=== PATIENT | female | born 1990 | race Caucasian/White ===

== ENCOUNTER 2016-11-03 15:51 | Emergency (ER) | payer MEDICAID ==
[2016-11-03 16:21] VITALS: BP 113/76
--- NOTE | 2016-11-03 16:41 | ED Physician Chart ---
Chief Complaint/HPI - Patient Information Date Seen:: 11/03/16 Time Seen:: 16:22 Chief Complaint:: back pain History of Present Illness:: here for back pain. has hx of back pain. hasnt taken norco in a few days. says she takes norco 10s. pt says last rx was from her pmd (later admits it was from a ED Dr) on Oct 17... she becomes forgetfull/vague about how she has gotten prior narcotic rx's no dysuria. no incontinence or loss bowel/bladder ctrl. no leg weakness/numbness. no abd pain. no fever. her usual back pain has now returned since not on norco x 3 days. says she had a appt w Dr Hernandez today but he couldnt see her due to emergency. says she's changing drs recently. Dr Guido was giving her rx's before. Allergies:: Allergies Allergy/AdvReac Type Severity Reaction Status Date / Time No Known Allergies Allergy Verified 11/03/16 16:17 Vitals:: Vital Signs - 8 hr 11/03/16 16:21 BP 113/76 Historian:: Patient Review of Systems - Review of Systems General/Constitutional: No fever, No chills, No weight loss, No weakness, No diaphoresis, No edema, No loss of appetite Skin: No skin lesions, No rash, No bruising Head: No headache, No light-headedness Eyes: No loss of vision, No pain, No diplopia ENT: No earache, No nasal drainage, No sore throat, No tinnitus Neck: No neck pain, No swelling, No thyromegaly, No stiffness, No mass noted Cardio Vascular: No chest pain, No palpitations, No PND, No orthopnea, No edema Pulmonary: No SOB, No cough, No sputum, No wheezing GI: No nausea, No vomiting, No diarrhea, No pain, No melena, No hematochezia, No constipation, No hematemesis G/U: No dysuria, No frequency, No hematuria Musculoskeletal: No bone or joint pain, Back pain, No muscle pain Endocrine: No polyuria, No polydipsia Psychiatric: No prior psych history, No depression, No anxiety, No suicidal ideation Hematopoietic: No bruising, No lymphadenopathy Allergic/Immuno: No urticaria, No angioedema Neurological: No syncope, No focal symptoms, No weakness, No paresthesia, No headache, No seizure, No dizziness, No confusion, No vertigo Past Medical History - Past Medical History Past Medical History: Other (chronic back pain) Social History: Non Smoker, No Alcohol Medication: Reviewed Physical Exam - Physical Examination General/Constitutional: Awake, Well-developed, well-nourished, Alert, No distress, GCS 15, Non-toxic appearing, Ambulatory Other Gen/Cons comments:: obese female who appears easily mobile and in nad. wn/wh. no aaa on abd exam. nt abd. back tndr at l5/s1 region. no cva tndrness. ok rom. strength/sensation ok b legs. 2+ pulses b legs. Head: Atraumatic Eyes: Lids, conjuctiva normal, PERRL, EOMI Skin: Nl inspection, No rash, No skin lesions, No ecchymosis, Well hydrated, No lymphadenopathy ENMT: External ears, nose nl, Nasal exam nl, Lips, teeth, gums nl Neck: Nontender, Full ROM w/o pain, No JVD, No nuchal rigidity, No bruit, No mass, No stridor Respiratory: Nl effort/Exclusion, Clear to Auscultation, No Wheeze/Rhonchi/Rales Cardio Vascular: RRR, No murmur, gallop, rubs, NL S1 S2 GI: No tenderness/rebounding/guarding, No organomegaly, No hernia, Normal BS's, Nondistended, No mass/bruits, No McBurney tenderness : No CVA tenderness Extremities: No tenderness or effusion, Full ROM, normal strength in all extremities, No edema, Normal digits & nails Neuro/Psych: Alert/oriented, DTR's symmetric, Normal sensory exam, Normal motor strength, Judgement/insight normal, Mood normal, Normal gait, No focal deficits Misc: normal gait, Normal back, No paraspinal tenderness ED Septic Shock - . Is Septic Shock (SBP<90, OR Lactate>4 mmol\L) present?: No - <6hrs of presentation: Vital Signs: Vital Signs - 8 hr 11/03/16 16:21 BP 113/76 Reassessment (Disposition) - Reassessment Reassessment:: pdmp data is large and concerneing but recent data does corroborate some of her story. there are more prescribers and more types of rx's than would prefer to see...however will give pt the benefit of the doubt.. rx norco 10s no 14 Reassessment Condition:: Unchanged - Diagnosis Diagnosis:: 1 chronic back pain 2 ran out of norco - wants med refill - Aftercare/Follow up Instructions Aftercare/Follow-Up Instructions:: Counseled pt regarding lab results/diagnosis & need follow up - Patient Disposition Discharge/Transfer:: Home Condition at Disposition:: Unchanged
== END 2016-11-03 16:56 | disposition home or self-care (01) ==
LOC: ER 15:51
DX: G89.29 Other chronic pain (principal); M54.9 Dorsalgia, unspecified; Z76.0 Encounter for issue of repeat prescription
CPT/HCPCS: Z7502

== ENCOUNTER 2016-12-28 04:00 | Emergency (ER) | payer MEDICAID ==
--- NOTE | 2016-12-28 07:32 | ED Physician Chart ---
Chief Complaint/HPI - Patient Information Date Seen:: 12/28/16 Time Seen:: 04:34 Chief Complaint:: back pain History of Present Illness:: THIS IS A 26 YO FEMALE WITH RECURRENT BACK PAIN THAT STARTED 6 DAYS AGO. SHE STATES THAT SHE RAN OUT OF HER BACK PAIN MEDICATION. SHE STATES THE PAIN IS 9/10. SHE STATES THAT PAIN RADIATES FROM HER LOWER BACK DOWN THRU THE BACK OF HER LEFT THIGH. SHE STATES THAT SHE IS TRYING TO GET AN EPIDURAL TREATMENT SOON. 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 SHE HAS BEEN SEEN IN THIS ER ON AND OFF SINCE OCT 2016. Allergies:: Allergies Allergy/AdvReac Type Severity Reaction Status Date / Time No Known Allergies Allergy Verified 12/28/16 05:04 Vitals:: Vital Signs - 8 hr 12/28/16 04:30 Temp 98.0 F HR 80 RR 18 BP 113/74 O2 Sat % 99 Historian:: Patient Review:: Nurse's Note Reviewed Review of Systems - Review of Systems General/Constitutional: No fever, No chills, No weight loss, No weakness, No diaphoresis, No edema, No loss of appetite Skin: No skin lesions, No rash, No bruising Head: No headache, No light-headedness Eyes: No loss of vision, No pain, No diplopia ENT: No earache, No nasal drainage, No sore throat, No tinnitus Neck: No neck pain, No swelling, No thyromegaly, No stiffness, No mass noted Cardio Vascular: No chest pain, No palpitations, No PND, No orthopnea, No edema Pulmonary: No SOB, No cough, No sputum, No wheezing GI: No nausea, No vomiting, No diarrhea, No pain, No melena, No hematochezia, No constipation, No hematemesis G/U: No dysuria, No frequency, No hematuria Musculoskeletal: Bone or joint pain, Back pain, No muscle pain Endocrine: No polyuria, No polydipsia Psychiatric: No prior psych history, No depression, No anxiety, No suicidal ideation Hematopoietic: No bruising, No lymphadenopathy Allergic/Immuno: No urticaria, No angioedema Neurological: No syncope, No focal symptoms, No weakness, No paresthesia, No headache, No seizure, No dizziness, No confusion, No vertigo Past Medical History - Past Medical History Obtainable: Yes Past Medical History: Other (BACK PAIN) Family History: None Social History: Non Smoker, No Alcohol, No Drug Use Surgical History: None Psychiatricy History: None Medication: Reviewed Family Medical History - Family Member Mother History Unknown: Yes Physical Exam - Physical Examination General/Constitutional: Awake, Well-developed, well-nourished, Alert, No distress, GCS 15, Non-toxic appearing, Ambulatory Other Gen/Cons comments:: OBESE Head: Atraumatic Eyes: Lids, conjuctiva normal, PERRL, EOMI Skin: Nl inspection, No rash, No skin lesions, No ecchymosis, Well hydrated, No lymphadenopathy ENMT: External ears, nose nl, Nasal exam nl, Lips, teeth, gums nl Neck: Nontender, Full ROM w/o pain, No JVD, No nuchal rigidity, No bruit, No mass, No stridor Respiratory: Nl effort/Exclusion, Clear to Auscultation, No Wheeze/Rhonchi/Rales Cardio Vascular: RRR, No murmur, gallop, rubs, NL S1 S2 GI: No tenderness/rebounding/guarding, No organomegaly, No hernia, Normal BS's, Nondistended, No mass/bruits, No McBurney tenderness : No CVA tenderness Extremities: No tenderness or effusion, Full ROM, normal strength in all extremities, No edema, Normal digits & nails Other Extremities comments:: TENDERNESS IN THE L4- L5 AREA BILATERALLY WITH NORMAL BUT PAINFUL ROM Neuro/Psych: Alert/oriented, DTR's symmetric, Normal sensory exam, Normal motor strength, Judgement/insight normal, Mood normal, Normal gait, No focal deficits Misc: normal gait, Normal back, No paraspinal tenderness ED Septic Shock - . Is Septic Shock (SBP<90, OR Lactate>4 mmol\L) present?: No - <6hrs of presentation: Vital Signs: Vital Signs - 8 hr 12/28/16 04:30 Temp 98.0 F HR 80 RR 18 BP 113/74 O2 Sat % 99 Reassessment (Disposition) - Reassessment Reassessment Condition:: Improved - Diagnosis Diagnosis:: BACK PAIN - Aftercare/Follow up Instructions Aftercare/Follow-Up Instructions:: Counseled pt regarding lab results/diagnosis & need follow up, Refer to Discharge Instructions, Counseled pt & family regarding lab results/diagnosis & need follow up Medication Prescribed:: FANATREX 600MG - Patient Disposition Discharge/Transfer:: Home Condition at Disposition:: Improved ED Discharge Plan - Patient Disposition Admit/Discharge/Transfer: PT DISCHARGED HOME Instructions: Back Pain, Adult, [id number] Additional Instructions: FOLLOW UP WITH YOUR REGULAR DOCTOR. FILL YOUR PRESCRIPTION AND TAKE IT DIRECTED.
== END 2016-12-28 05:25 | disposition home or self-care (01) ==
LOC: ER 04:00
DX: M54.9 Dorsalgia, unspecified (principal)
CPT/HCPCS: J1885; Z7502

== ENCOUNTER 2016-12-31 18:42 | Emergency (ER) | payer MEDICAID ==
--- NOTE | 2016-12-31 19:35 | ED Physician Chart ---
Chief Complaint/HPI - Patient Information Date Seen:: 12/31/16 Time Seen:: 19:26 Chief Complaint:: anxiety and back pain History of Present Illness:: THIS IS A 26 YO FEMALE WHO IS CONCERNED ABOUT FEELING JITTERY ALL DAY AND STATES THAT SHE IS TAKING ZANAX BUT RAN OUT. SHE ALSO HAS A COMPLAINT OF HAVING BACK PAIN. SHE STATES THAT SHE IS SCHEDULED TO SEE HER PMD ON TUESDAY. SHE IS ON NEUROLOGY DISABILITY. SHE STATES HER BACK PAIN IS 5/10 BUT ABLE MOVE AROUND WITH OUT MORE PAIN. SHE DENIES ANY RECENT TRAUMA OR OLD TRAUMA THAT CAUSE THE BACK PAIN. SHE ALSO STATES THAT AT TIMES SHE HAS HEADACHES. SHE DENIES ANY RECENT FEVER, NAUSEA OR VOMITING. SHE DENIES DIABETES MELLITUS OR HYPERTENSION. SHE THINKS THAT SHE MIGHT HAVE THYROID DISEASE AND WANTS BLOOD WORK. Allergies:: Allergies Allergy/AdvReac Type Severity Reaction Status Date / Time No Known Allergies Allergy Verified 12/28/16 05:04 Vitals:: Vital Signs - 8 hr 12/31/16 12/31/16 19:18 19:21 Temp 98.9 F HR 94 RR 15 BP 119/70 117/70 O2 Sat % 100 Historian:: Patient Review:: Nurse's Note Reviewed <Bigg Rashid - Last Filed: 12/31/16 19:25> - Patient Information Allergies:: Allergies Allergy/AdvReac Type Severity Reaction Status Date / Time No Known Allergies Allergy Verified 12/28/16 05:04 Vitals:: Vital Signs - 8 hr 12/31/16 12/31/16 19:18 19:21 Temp 98.9 F HR 94 RR 15 BP 119/70 117/70 O2 Sat % 100 <Wilfred Ron - Last Filed: 12/31/16 20:52> Review of Systems - Review of Systems General/Constitutional: No fever, No chills, No weight loss, No weakness, No diaphoresis, No edema, No loss of appetite, Other (OBESE) Skin: No skin lesions, No rash, No bruising Head: No headache, No light-headedness Eyes: No loss of vision, No pain, No diplopia ENT: No earache, No nasal drainage, No sore throat, No tinnitus Neck: No neck pain, No swelling, No thyromegaly, No stiffness, No mass noted Cardio Vascular: No chest pain, No palpitations, No PND, No orthopnea, No edema Pulmonary: No SOB, No cough, No sputum, No wheezing GI: No nausea, No vomiting, No diarrhea, No pain, No melena, No hematochezia, No constipation, No hematemesis G/U: No dysuria, No frequency, No hematuria Musculoskeletal: No bone or joint pain, Back pain, No muscle pain Endocrine: No polyuria, No polydipsia Psychiatric: Prior psych history, No depression, Anxiety, No suicidal ideation Hematopoietic: No bruising, No lymphadenopathy Allergic/Immuno: No urticaria, No angioedema Neurological: No syncope, No focal symptoms, No weakness, No paresthesia, Headache, No headache, No seizure, No dizziness, No confusion, No vertigo <RachidBigg - Last Filed: 12/31/16 19:25> Past Medical History - Past Medical History Obtainable: Yes Past Medical History: HTN, Other Family History: None Social History: Non Smoker, No Alcohol, No Drug Use Surgical History: other (TONSILS REMOVED) Psychiatricy History: Depression Medication: Reviewed <RachidBigg - Last Filed: 12/31/16 19:25> Family Medical History - Family Member Mother History Unknown: Yes Hx Family Cancer: Yes <Bigg Rashid - Last Filed: 12/31/16 19:25> Physical Exam - Physical Examination General/Constitutional: Awake, Well-developed, well-nourished, Alert, No distress, GCS 15, Non-toxic appearing, Ambulatory Head: Atraumatic Eyes: Lids, conjuctiva normal, PERRL, EOMI Skin: Nl inspection, No rash, No skin lesions, No ecchymosis, Well hydrated, No lymphadenopathy ENMT: External ears, nose nl, Nasal exam nl, Lips, teeth, gums nl Neck: Nontender, Full ROM w/o pain, No JVD, No nuchal rigidity, No bruit, No mass, No stridor Respiratory: Nl effort/Exclusion, Clear to Auscultation, No Wheeze/Rhonchi/Rales Cardio Vascular: RRR, No murmur, gallop, rubs, NL S1 S2 GI: No tenderness/rebounding/guarding, No organomegaly, No hernia, Normal BS's, Nondistended, No mass/bruits, No McBurney tenderness : No CVA tenderness Extremities: No tenderness or effusion, Full ROM, normal strength in all extremities, No edema, Normal digits & nails Neuro/Psych: Alert/oriented, DTR's symmetric, Normal sensory exam, Normal motor strength, Judgement/insight normal, Mood normal, Normal gait, No focal deficits Misc: normal gait, Normal back, No paraspinal tenderness <Bigg Rashid - Last Filed: 12/31/16 19:25> Labs/Radiology/EKG Results - Lab Results Results: Laboratory Tests 12/31/16 12/31/16 12/31/16 19:35 19:35 19:35 WBC 13.5 H RBC 5.21 H Hgb 13.9 Hct 42.1 MCV 80.7 L MCH 26.6 L MCHC Differential 33.0 RDW 14.6 Plt Count 362 MPV 8.5 Neutrophils % 69.9 Lymphocytes % 22.8 Monocytes % 4.1 Eosinophils % 3.2 Basophils % 0.0 PT 9.6 INR 0.92 PTT (Actin FS) 25.0 L Sodium Potassium Chloride Carbon Dioxide Anion Gap BUN Creatinine Est GFR ( Amer) Est GFR (Non-Af Amer) BUN/Creatinine Ratio Glucose Whole Bld Lactic Acid Calcium Total Bilirubin AST ALT Alkaline Phosphatase Troponin I Total Protein Albumin Globulin Albumin/Globulin Ratio Triglycerides 172 H Cholesterol 170 LDL Cholesterol Direct 100 HDL Cholesterol 49 Urine Source Urine Color Urine Clarity Urine pH Ur Specific [place] Urine Protein Urine Glucose (UA) Urine Ketones Urine Blood Urine Nitrate Urine Bilirubin Urine Urobilinogen Ur Leukocyte Esterase Urine RBC Urine WBC Ur Epithelial Cells Amorphous Sediment Urine Bacteria Urine Test Urine Opiates Screen Urine Methadone Screen Ur Barbiturates Screen Ur Tricyclics Screen Ur Phencyclidine Scrn Amphetamines Screen U Methamphetamines Scrn U Benzodiazepines Scrn U Cocaine Metab Screen U Cannabinoids Screen RPR 12/31/16 12/31/16 12/31/16 19:35 19:35 19:35 WBC RBC Hgb Hct MCV MCH MCHC Differential RDW Plt Count MPV Neutrophils % Lymphocytes % Monocytes % Eosinophils % Basophils % PT INR PTT (Actin FS) Sodium 135 L Potassium 4.0 Chloride 103 Carbon Dioxide 27.4 Anion Gap 8.6 BUN 13 Creatinine 0.8 Est GFR ( Amer) > 60.0 Est GFR (Non-Af Amer) > 60.0 BUN/Creatinine Ratio 16.3 Glucose 74 Whole Bld Lactic Acid Calcium 10.1 Total Bilirubin 0.4 AST 20 ALT 26 Alkaline Phosphatase 85 Troponin I < 0.01 L Total Protein 8.0 Albumin 4.6 Globulin 3.4 Albumin/Globulin Ratio 1.4 Triglycerides Cholesterol LDL Cholesterol Direct HDL Cholesterol Urine Source CLEAN C Urine Color YELLOW Urine Clarity HAZY Urine pH 7.0 Ur Specific [place] 1.020 Urine Protein NEGATIVE Urine Glucose (UA) NEGATIVE Urine Ketones NEGATIVE Urine Blood NEGATIVE Urine Nitrate NEGATIVE Urine Bilirubin NEGATIVE Urine Urobilinogen 0.2 Ur Leukocyte Esterase SMALL H Urine RBC 0-1 Urine WBC 6-10 H Ur Epithelial Cells MODERATE Amorphous Sediment FEW URATES Urine Bacteria MODERATE Urine Test Urine Opiates Screen Urine Methadone Screen Ur Barbiturates Screen Ur Tricyclics Screen Ur Phencyclidine Scrn Amphetamines Screen U Methamphetamines Scrn U Benzodiazepines Scrn U Cocaine Metab Screen U Cannabinoids Screen RPR 12/31/16 12/31/16 12/31/16 19:35 19:35 20:00 WBC RBC Hgb Hct MCV MCH MCHC Differential RDW Plt Count MPV Neutrophils % Lymphocytes % Monocytes % Eosinophils % Basophils % PT INR PTT (Actin FS) Sodium Potassium Chloride Carbon Dioxide Anion Gap BUN Creatinine Est GFR ( Amer) Est GFR (Non-Af Amer) BUN/Creatinine Ratio Glucose Whole Bld Lactic Acid Calcium Total Bilirubin AST ALT Alkaline Phosphatase Troponin I Total Protein Albumin Globulin Albumin/Globulin Ratio Triglycerides Cholesterol LDL Cholesterol Direct HDL Cholesterol Urine Source Urine Color Urine Clarity Urine pH Ur Specific [place] Urine Protein Urine Glucose (UA) Urine Ketones Urine Blood Urine Nitrate Urine Bilirubin Urine Urobilinogen Ur Leukocyte Esterase Urine RBC Urine WBC Ur Epithelial Cells Amorphous Sediment Urine Bacteria Urine Test NEGATIVE Urine Opiates Screen NEGATIVE Urine Methadone Screen NEGATIVE Ur Barbiturates Screen NEGATIVE Ur Tricyclics Screen NEGATIVE Ur Phencyclidine Scrn NEGATIVE Amphetamines Screen NEGATIVE U Methamphetamines Scrn NEGATIVE U Benzodiazepines Scrn POSITIVE H U Cocaine Metab Screen NEGATIVE U Cannabinoids Screen NEGATIVE RPR NONREACTIVE 12/31/16 20:00 WBC RBC Hgb Hct MCV MCH MCHC Differential RDW Plt Count MPV Neutrophils % Lymphocytes % Monocytes % Eosinophils % Basophils % PT INR PTT (Actin FS) Sodium Potassium Chloride Carbon Dioxide Anion Gap BUN Creatinine Est GFR ( Amer) Est GFR (Non-Af Amer) BUN/Creatinine Ratio Glucose Whole Bld Lactic Acid 0.90 Calcium Total Bilirubin AST ALT Alkaline Phosphatase Troponin I Total Protein Albumin Globulin Albumin/Globulin Ratio Triglycerides Cholesterol LDL Cholesterol Direct HDL Cholesterol Urine Source Urine Color Urine Clarity Urine pH Ur Specific [place] Urine Protein Urine Glucose (UA) Urine Ketones Urine Blood Urine Nitrate Urine Bilirubin Urine Urobilinogen Ur Leukocyte Esterase Urine RBC Urine WBC Ur Epithelial Cells Amorphous Sediment Urine Bacteria Urine Test Urine Opiates Screen Urine Methadone Screen Ur Barbiturates Screen Ur Tricyclics Screen Ur Phencyclidine Scrn Amphetamines Screen U Methamphetamines Scrn U Benzodiazepines Scrn U Cocaine Metab Screen U Cannabinoids Screen RPR <Wilfred Ron - Last Filed: 12/31/16 20:52> ED Septic Shock - <6hrs of presentation: Vital Signs: Vital Signs - 8 hr 12/31/16 12/31/16 19:18 19:21 Temp 98.9 F HR 94 RR 15 BP 119/70 117/70 O2 Sat % 100 <Bigg Rashid - Last Filed: 12/31/16 19:25> - . Is Septic Shock (SBP<90, OR Lactate>4 mmol\L) present?: No - <6hrs of presentation: Vital Signs: Vital Signs - 8 hr 12/31/16 12/31/16 19:18 19:21 Temp 98.9 F HR 94 RR 15 BP 119/70 117/70 O2 Sat % 100 <Wilfred Ron - Last Filed: 12/31/16 20:52> Reassessment (Disposition) - Reassessment Reassessment:: Patient has acute UTI. We did run her report on the [employer] database and noted that she is receiving multiple controlled substances from multiple providers. We discussed this with her in detail. She has had both temazepam and alprazolam and multiple fills of Dexter's/opiates. Initially she claimed to not have had either benzodiazepines or opiates/Dexter for at least 3 months. Both Prescribed in large quantities earlier this month according to the report. We did share with her the report in the dates and quantities of refills. She appears to be high risk for substance abuse. We will not refill her medication request for benzodiazepines or Xanax this time. Advised her to follow-up with her primary care physician for further refills. Did give Rx nitrofurantoin for the UTI. Recommended follow-up PCP 1-2 days. Return to ER precautions given. Patient understands and agrees the plan. Reassessment Condition:: Improved - Diagnosis Diagnosis:: Acute UTI - Aftercare/Follow up Instructions Aftercare/Follow-Up Instructions:: Counseled pt regarding lab results/diagnosis & need follow up, Refer to Discharge Instructions - Patient Disposition Discharge/Transfer:: Home Time:: 20:51 Condition at Disposition:: Improved <Wilfred Ron - Last Filed: 12/31/16 20:52> ED Discharge Plan <Bigg Rashid - Last Filed: 12/31/16 19:25> <Wilfred Ron - Last Filed: 12/31/16 20:52> - Patient Disposition Admit/Discharge/Transfer: PT DISCHARGED HOME Condition at Disposition: Improved Instructions: Urinary Tract Infection
[2016-12-31 20:08] LABS: % EOSINOPHILS 3.2 % (0.0-5.0); % LYMPHOCYTES 22.8 % (20.0-50.0); % MONOCYTES 4.1 % (2.0-10.0); % NEUTROPHILS 69.9 % (40.0-80.0); HEMATOCRIT 42.1 % (35.0-45.0); HEMOGLOBIN 13.9 gm/dL (11.7-15.5); MEAN CELL VOLUME 80.7 fl (81-100); MEAN CORPUSCULAR HEMOGLOBIN 26.6 pg (27.0-31.0); MEAN PLATELET VOLUME 8.5 fl; NEUTROPHILE ABSOLUTE 9.4 Th/cmm (1.8-8.0); PLATELET COUNT 362 Th/cmm (150-400); RED BLOOD COUNT 5.21 Mil/cmm (3.80-5.10); RED CELL DISTRIBUTION WIDTH 14.6 % (11.5-20.0)
[2016-12-31 20:17] LABS: WHITE BLOOD COUNT 13.5 Th/cmm (4.8-10.8)
[2016-12-31 20:20] VITALS: BP 119/70
[2016-12-31 20:24] LABS: INR 0.92 (0.5-1.4); PROTHROMBIN TIME (TEST) 9.6 SECONDS (9.5-11.5)
[2016-12-31 20:27] LABS: ALB/GLOB RATIO 1.4 (1.0-1.8); ALKALINE PHOSPHATASE 85 U/L (34-104); ANION GAP 8.6 (7.0-16.0); BILIRUBIN,TOTAL 0.4 mg/dL (0.3-1.0); BUN - UREA NITROGEN 13 mg/dL (7-25); BUN/CREATININE RATIO 16.3; CALCIUM SERUM 10.1 mg/dL (8.6-10.3); CARBON DIOXIDE 27.4 mEq/L (21.0-31.0); CHLORIDE 103 mEq/L (98-107); CREATININE - SERUM 0.8 mg/dL (0.6-1.2); GLUCOSE 74 mg/dL (70-105); SGOT 20 U/L (13-39); SGPT/ALT 26 U/L (7-52); SODIUM SERUM 135 mEq/L (136-145)
[2016-12-31 20:28] LABS: CHOLESTEROL 170 mg/dL (<200); TRIGLYCERIDES 172 mg/dL (<150)
[2016-12-31 20:31] LABS: URINE BILIRUBIN NEGATIVE (NEGATIVE); URINE BLOOD NEGATIVE (NEGATIVE); URINE COLOR YELLOW; URINE GLUCOSE (UA) NEGATIVE (NEGATIVE); URINE KETONE NEGATIVE (NEGATIVE); URINE PROTEIN NEGATIVE (NEGATIVE); URINE RBC 0-1 /hpf (0-5); URINE UROBILINOGEN 0.2 E.U./dL (0.2 - 1.0)
[2016-12-31 20:32] LABS: URINE AMORPHOUS SEDIMENT FEW URATES (NONE SEEN); URINE BACTERIA MODERATE /hpf (NONE SEEN); URINE EPITHELIAL CELLS MODERATE /lpf (FEW)
[2016-12-31 20:33] LABS: AMPHETAMINE URINE NEGATIVE (NEGATIVE); BARBITURATES URINE NEGATIVE (NEGATIVE); METHADONE URINE NEGATIVE (NEGATIVE)
== END 2016-12-31 20:55 | disposition home or self-care (01) ==
LOC: ER 18:42
DX: N39.0 Urinary tract infection, site not specified (principal); I10 Essential (primary) hypertension
CPT/HCPCS: 99284; 96372; 84484; 80307; 36415; 83605; 84443; 86592; 85025; 85610; 85730; 81025; 80053; 80061; 87040 ×2; 81001; J1885; Z7502

== ENCOUNTER 2017-02-16 04:52 | Emergency (ER) | payer MEDICAID ==
--- NOTE | 2017-02-16 05:56 | ED Physician Chart ---
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, pleuritic, intermittent, localized lower middle Chest Pain lasting a few minutes; pt denies SOB,diaphoresis, N/V; no Abdominal pain, A/N/V/D/C, fevwer, chills; pt tried no pain medications Allergies:: Allergies Allergy/AdvReac Type Severity Reaction Status Date / Time No Known Allergies Allergy Verified 02/16/17 05:06 Vitals:: Vital Signs - 8 hr 02/16/17 04:55 Temp 97.8 F HR 75 RR 20 BP 137/79 O2 Sat % 100 Historian:: Patient, Family Member Review:: Nurse's Note Reviewed, Old Chart Reviewed Review of Systems - Review of Systems General/Constitutional: Chills, No weight loss, Weakness, No diaphoresis, No edema, No loss of appetite Skin: No skin lesions, No rash, No bruising Head: No headache, No light-headedness Eyes: No loss of vision, No pain, No diplopia ENT: No earache, No nasal drainage, No sore throat, No tinnitus Neck: No neck pain, No swelling, No thyromegaly, No stiffness, No mass noted Cardio Vascular: Chest pain, Palpitations, No PND, No orthopnea, No edema Pulmonary: No SOB, Cough, No sputum, No wheezing GI: Nausea, Vomiting, Diarrhea, No pain, No melena, No hematochezia, No constipation, No hematemesis G/U: No dysuria, No frequency, No hematuria Water Resource Manager: Abnormal vaginal bleeding Musculoskeletal: No bone or joint pain, No back pain, No muscle pain Endocrine: No polyuria, No polydipsia Psychiatric: Prior psych history, Depression, Anxiety, No suicidal ideation Hematopoietic: No bruising, No lymphadenopathy Allergic/Immuno: No urticaria, No angioedema Neurological: No syncope, No focal symptoms, Weakness, No paresthesia, No headache, No seizure, No dizziness, No confusion, No vertigo Past Medical History - Past Medical History Past Medical History: Other (Depression) Family History: HTN Social History: Smoker, Alcohol, No Drug Use Psychiatricy History: Depression, Other (Anxiety Reaction) Medication: Reviewed Family Medical History - Family Member Mother History Unknown: Yes Hx Family Cancer: Yes Physical Exam - Physical Examination General/Constitutional: Awake, Well-developed, well-nourished, Alert, No distress, GCS 15, Non-toxic appearing, Ambulatory Head: Atraumatic Eyes: Lids, conjuctiva normal, PERRL, EOMI Skin: Nl inspection, No rash, No skin lesions, No ecchymosis, Well hydrated, No lymphadenopathy ENMT: External ears, nose nl, Nasal exam nl, Lips, teeth, gums nl Neck: Nontender, Full ROM w/o pain, No JVD, No nuchal rigidity, No bruit, No mass, No stridor Respiratory: Nl effort/Exclusion, Clear to Auscultation, No Wheeze/Rhonchi/Rales Cardio Vascular: RRR, No murmur, gallop, rubs, NL S1 S2 GI: No tenderness/rebounding/guarding, No organomegaly, No hernia, Normal BS's, Nondistended, No mass/bruits, No McBurney tenderness : No CVA tenderness Extremities: No tenderness or effusion, Full ROM, normal strength in all extremities, No edema, Normal digits & nails Neuro/Psych: Alert/oriented, DTR's symmetric, Normal sensory exam, Normal motor strength, Judgement/insight normal, Mood normal, Normal gait, No focal deficits Misc: normal gait, Normal back, No paraspinal tenderness Labs/Radiology/EKG Results - Lab Results Results: Unremarkable; BHCG: Negative Comments:: WBC: 12.5 - EKG Interpretations EKG Time:: 05:03 Rate & Rhythm: Rate: 75; NSR [place]: LAD Comments:: Poor R- Wave progression; non-specific ST-T Changes ED Septic Shock - . Is Septic Shock (SBP<90, OR Lactate>4 mmol\L) present?: No - <6hrs of presentation: Vital Signs: Vital Signs - 8 hr 02/16/17 04:55 Temp 97.8 F HR 75 RR 20 BP 137/79 O2 Sat % 100
[2017-02-16 06:06] LABS: % EOSINOPHILS 3.5 % (0.0-5.0); % LYMPHOCYTES 17.1 % (20.0-50.0); % MONOCYTES 6.1 % (2.0-10.0); % NEUTROPHILS 73.3 % (40.0-80.0); HEMATOCRIT 41.1 % (35.0-45.0); HEMOGLOBIN 13.6 gm/dL (11.7-15.5); MEAN CELL VOLUME 80.7 fl (81-100); MEAN CORPUSCULAR HEMOGLOBIN 26.6 pg (27.0-31.0); MEAN PLATELET VOLUME 8.7 fl; NEUTROPHILE ABSOLUTE 9.2 Th/cmm (1.8-8.0); PLATELET COUNT 299 Th/cmm (150-400); RED BLOOD COUNT 5.09 Mil/cmm (3.80-5.10); RED CELL DISTRIBUTION WIDTH 14.5 % (11.5-20.0)
[2017-02-16 06:07] LABS: WHITE BLOOD COUNT 12.5 Th/cmm (4.8-10.8)
[2017-02-16] MEDS ORDERED: Morphine Sulfate 2 mg/mL 1mL Syr ONE (06:18)
[2017-02-16 06:22] LABS: INR 0.92 (0.5-1.4); PROTHROMBIN TIME (TEST) 9.6 SECONDS (9.5-11.5)
[2017-02-16 06:23] LABS: ANION GAP 9.1 (7.0-16.0); BUN - UREA NITROGEN 13 mg/dL (7-25); BUN/CREATININE RATIO 18.6; CALCIUM SERUM 9.7 mg/dL (8.6-10.3); CARBON DIOXIDE 24.9 mEq/L (21.0-31.0); CHLORIDE 104 mEq/L (98-107); CHOLESTEROL 150 mg/dL (<200); CREATININE - SERUM 0.7 mg/dL (0.6-1.2); GLUCOSE 114 mg/dL (70-105); SODIUM SERUM 134 mEq/L (136-145); TRIGLYCERIDES 147 mg/dL (<150)
[2017-02-16 06:25] LABS: URINE BILIRUBIN NEGATIVE (NEGATIVE); URINE BLOOD NEGATIVE (NEGATIVE); URINE COLOR YELLOW; URINE GLUCOSE (UA) NEGATIVE (NEGATIVE); URINE KETONE NEGATIVE (NEGATIVE); URINE PROTEIN NEGATIVE (NEGATIVE); URINE UROBILINOGEN 0.2 E.U./dL (0.2 - 1.0)
[2017-02-16 06:26] LABS: TROP I < 0.01 ng/mL (0.01-0.05)
[2017-02-16 06:33] LABS: URINE EPITHELIAL CELLS MODERATE /lpf (FEW); URINE RBC 0-2 /hpf (0-5)
[2017-02-16 06:34] LABS: URINE BACTERIA FEW /hpf (NONE SEEN)
[2017-02-16 06:37] LABS: BNP 6.9 pg/mL (5.0-100.0)
--- NOTE | 2017-02-16 08:07 | General Progress Note ---
Subjective - Review of Systems Service Date: 02/16/17 Events since last encounter: 7;43am pt seen earlier by Dr Adkins. pt her for cp pressure that woke her up. says was sweaty w gi upset. has had prior cardiac prasad 1 ma was neg. saw her pmd after. no sob. no leg edema or pain. no cardiac risk hx. nonsmoker, no hyperlipidemia, no htn. no cardiac anomaly in past. no gregoria pmh. pt does not volunteer info w general pmh qs that she is on chronic pain med s for back pain. she says she takes norco daily but then later says she has run out a few days ago when i tell her about dc plan. pt has been dxd w anxiety in past. she has xanax and took 1 prior to ed. pt seems to have interest in more narcotics. her story is changing and she tries to elevate her current rx to percocet.. pt says she cant see her pmd till the . she says she is not on pain mgt but that it has been advised in past. no recent dysuria or abd pain. PE mod obese female in nad. pts mood/demeanor seems incongrous w the level of pain she claims. heart rrr no m,. s1s2 regular. lungs cta b/no sob. chest wall nontndr. abd s/nt/no mass.pos nabs. no aaa. extr no edema, no kalli sx. good pulses. good cap refill neck no jvd. psych ?mild anxiety. pt seems overall very calm and collected and seemingly [id number] driven concerns seem most primary in thoughts labs essentially nrml w mild elev wbc.12 lipids ok trop <0.01 ua trace wbc 6-10, few bact cxr nad. ecg nsr [address]t changes review of pdmp shows pt has received a rx for 90 norco 10s on on 01/31/17 . she received 45 norco 10s x2 rxs in january also. plan dw pt...dc home. tx for poss uti. see pmd in 1-2 days. have pmd handle chronic pain meds. may return if worse cp or sob. no strenuous work until seen by pmd. take antibiotic as rxd. I cannot comfortable understand pts usage pattern given her recent rx and what she has told me so far has not included any explanation as to why her usage would be so far ahead of schedule...I am planning to deny her request for additional narcotic pain medication. rx macrobid for uti. cond stable dx: 1 anxiety/panic attack 2 noncardiac/musculoskeltal chest pain 3 chronic back pain 4 uti dispo dc home Objective - Results Result Diagrams: 02/16/17 06:00 02/16/17 06:00 Recent Labs: Laboratory Last Values WBC 12.5 Th/cmm (4.8-10.8) H 02/16/17 06:00 RBC 5.09 Mil/cmm (3.80-5.10) 02/16/17 06:00 Hgb 13.6 gm/dL (11.7-15.5) 02/16/17 06:00 Hct 41.1 % (35.0-45.0) 02/16/17 06:00 MCV 80.7 fl (81-100) L 02/16/17 06:00 MCH 26.6 pg (27.0-31.0) L 02/16/17 06:00 MCHC Differential 33.0 pg (28.0-36.0) 02/16/17 06:00 RDW 14.5 % (11.5-20.0) 02/16/17 06:00 Plt Count 299 Th/cmm (150-400) 02/16/17 06:00 MPV 8.7 fl 02/16/17 06:00 Neutrophils % 73.3 % (40.0-80.0) 02/16/17 06:00 Lymphocytes % 17.1 % (20.0-50.0) L 02/16/17 06:00 Monocytes % 6.1 % (2.0-10.0) 02/16/17 06:00 Eosinophils % 3.5 % (0.0-5.0) 02/16/17 06:00 Basophils % 0.0 % (0.0-2.0) 02/16/17 06:00 PT 9.6 SECONDS (9.5-11.5) 02/16/17 06:00 INR 0.92 (0.5-1.4) 02/16/17 06:00 Sodium 134 mEq/L (136-145) L 02/16/17 06:00 Potassium 4.0 mEq/L (3.5-5.1) 02/16/17 06:00 Chloride 104 mEq/L (98-107) 02/16/17 06:00 Carbon Dioxide 24.9 mEq/L (21.0-31.0) 02/16/17 06:00 Anion Gap 9.1 (7.0-16.0) 02/16/17 06:00 BUN 13 mg/dL (7-25) 02/16/17 06:00 Creatinine 0.7 mg/dL (0.6-1.2) 02/16/17 06:00 Est GFR ( Amer) > 60.0 ml/min (>90) 02/16/17 06:00 Est GFR (Non-Af Amer) > 60.0 ml/min 02/16/17 06:00 BUN/Creatinine Ratio 18.6 02/16/17 06:00 Glucose 114 mg/dL (70-105) H 02/16/17 06:00 Calcium 9.7 mg/dL (8.6-10.3) 02/16/17 06:00 Creatine Kinase 76 U/L (30-223) 02/16/17 06:00 Troponin I < 0.01 ng/mL (0.01-0.05) L 02/16/17 06:00 B-Natriuretic Peptide 6.9 pg/mL (5.0-100.0) 02/16/17 06:00 Triglycerides 147 mg/dL (<150) 02/16/17 06:00 Cholesterol 150 mg/dL (<200) 02/16/17 06:00 LDL Cholesterol Direct 84 mg/dL (75-193) 02/16/17 06:00 HDL Cholesterol 47 mg/dL (23-92) 02/16/17 06:00 Serum , Qual NEGATIVE (NEGATIVE) 02/16/17 06:00 Urine Source CLEAN C 02/16/17 06:15 Urine Color YELLOW 02/16/17 06:15 Urine Clarity SL. CLOUDY (CLEAR) 02/16/17 06:15 Urine pH 6.0 02/16/17 06:15 Ur Specific [place] (1.005-1.030) 02/16/17 06:15 Urine Protein NEGATIVE mg/dL (NEGATIVE) 02/16/17 06:15 Urine Glucose (UA) NEGATIVE mg/dL (NEGATIVE) 02/16/17 06:15 Urine Ketones NEGATIVE mg/dL (NEGATIVE) 02/16/17 06:15 Urine Blood NEGATIVE (NEGATIVE) 02/16/17 06:15 Urine Nitrate NEGATIVE (NEGATIVE) 02/16/17 06:15 Urine Bilirubin NEGATIVE (NEGATIVE) 02/16/17 06:15 Urine Urobilinogen 0.2 E.U./dL (0.2 - 1.0) 02/16/17 06:15 Ur Leukocyte Esterase NEGATIVE (NEGATIVE) 02/16/17 06:15 Urine RBC 0-2 /hpf (0-5) 02/16/17 06:15 Urine WBC 6-10 /hpf (0-5) H 02/16/17 06:15 Ur Epithelial Cells MODERATE /lpf (FEW) 02/16/17 06:15 Urine Bacteria FEW /hpf (NONE SEEN) 02/16/17 06:15 - Physical Exam Vitals and I&O: Vital Signs Temp 97.8 F 02/16/17 04:55 Pulse 75 02/16/17 04:55 Resp 20 02/16/17 04:55 BP 137/79 02/16/17 04:55 Pulse Ox 100 02/16/17 04:55 Intake & Output 02/15/17 02/16/17 02/16/17 18:59 06:59 18:59 Weight (lbs) 104.326 kg Active Medications: Current Medications Morphine Sulfate (Morphine) 2 mg IV NOW STA Stop: 02/16/17 05:51 Last Admin: 02/16/17 06:20 Dose: 2 mg
--- NOTE | 2017-02-17 09:08 | Diagnostic Imaging Report ---
Portable chest x-ray History: Pain Allowing for portable technique the heart size is normal. No focal pulmonary parenchymal processes. No hilar or mediastinal abnormalities. Impression: No acute abnormalities.
== END 2017-02-16 07:55 | disposition home or self-care (01) ==
LOC: ER 04:52
DX: R07.81 Pleurodynia (principal); G89.29 Other chronic pain; M54.9 Dorsalgia, unspecified; N39.0 Urinary tract infection, site not specified; F17.200 Nicotine dependence, unspecified, uncomplicated
CPT/HCPCS: 99285; 96374; 94760; 93005; 71010; 84484; 83880; 36415; 85025; 85610; 87086; 81001; 82550; 84703; 80061; 80048; J2270